=== PATIENT | female | born 1965 | race Caucasian/White ===

== ENCOUNTER 2018-01-29 08:24 | Day surgery (SDC) | payer OTHER ==
[2018-01-29] MEDS ORDERED: FENTAnyl 50 MCG/ML VIAL (10:31)
[2018-01-29] MEDS ORDERED: MIDAZOLAM 1 MG/ML 2 ML INJ ×3 (10:31)
== END 2018-01-29 11:58 | disposition home or self-care (01) ==
LOC: GIL 08:24
DX: Z12.11 Encounter for screening for malignant neoplasm of colon (principal); K57.90 Diverticulosis of intestine, part unspecified, without perforation or abscess without bleeding; K64.4 Residual hemorrhoidal skin tags
CPT/HCPCS: 45378